=== PATIENT | female | born 1930 | race Caucasian/White ===

== ENCOUNTER 2016-11-17 13:57 | Inpatient (IN) | payer MEDICARE ==
[~2016-11-17] VITALS: Ht 157.5 cm; Wt 71.5 kg
[~2016-11-17 13:57] MED LIST: ATEN25TA PO; GLUC500C5 PO; MAXZTAB PO; MULTTAB67 PO; SERT-132 PO; SIMV20TA PO; VITA100064 PO; WARF-58 PO
[2016-11-20] MEDS ORDERED: WARF-18 PO (10:16)
[2016-11-20] MEDS ORDERED: HYDR-3583 PO (10:16)
[2016-11-20] MEDS ORDERED: [UNRECOGNIZED DRUG - CODE] PO (10:16)
[2016-11-20] MEDS ORDERED: MAGN1TAB14 PO (10:17)
[2016-11-20] MEDS ORDERED: ASCO500W PO (10:17)
[2016-11-20] MEDS ORDERED: CRANCAP2 PO (10:17)
[2016-12-06] MEDS ORDERED: LACTATED RINGER'S 1000 ML IV PRN (05:45)
[2016-12-06] MEDS ORDERED: METOPROLOL TARTRATE 25 MG TAB PO PRN (05:45)
[2016-12-06] MEDS ORDERED: POVIDONE IODINE 5% (ANTISEPSIS KIT) 4 APPLICATIONS EACH NARE PRN (05:45)
[2016-12-06] MEDS ORDERED: SODIUM CHLORID 0.9% 500 ML IV PRN (05:45)
[2016-12-06] MEDS ORDERED: CHLORHEXIDINE GLUCONATE 2 % 1 PACK (2 CLOTHS) TOPICAL PRN (05:45)
[2016-12-06] MEDS ORDERED: INSULIN HUMAN REGULAR 1,000 UNITS/10 ML VIAL SQ PRN (05:45)
[2016-12-06] MEDS ORDERED: ceFAZolin 2 GM PREMIX 50 ML IV SCH (06:00)
[2016-12-06] MEDS ORDERED: VANCOMYCIN 1000 MG/NS 250 ML (for <70 kg) IV SCH ×2 (06:00)
[2016-12-06] MEDS ORDERED: TRANEXAMIC ACID INJ 720 MG in SODIUM CHLORIDE 0.9% INJ 100 ML IV SCH (06:00)
[2016-12-06] MEDS ORDERED: EXPAREL PERI-ARTICULAR INJECTION (TOTAL VOL. 60 ML) P-ARTICULR SCH ×2 (06:00)
[2016-12-06] MEDS ORDERED: POVIDONE IODINE 7.5% SCRUB 118 ML BOTTLE TOPICAL SCH (06:00)
[2016-12-06] MEDS ORDERED: DEXAMETHASONE SOD PHOS 20 MG/5 ML VIAL IV PRN (06:00)
[2016-12-06] MEDS ORDERED: ENOX100P SQ (06:02)
[2016-12-06 06:05] VITALS: BP 159/77; PULSE 63; RESP 20; TEMP 99; O2SAT 98
[2016-12-06 06:21] LABS: PROTHROMBIN TIME - PATIENT 10.6 SEC (9.8-11.6)
[2016-12-06] MEDS ORDERED: GENTAMICIN SULFATE 80 MG/2 ML VIAL ONE (06:24)
[2016-12-06] MEDS ORDERED: MIDAZOLAM HCL 2 MG/2 ML VIAL ONE (06:39)
[2016-12-06] MEDS ORDERED: ACETAMINOPHEN 1000 MG/100 ML VIAL IV ONE (06:39)
[2016-12-06] MEDS ORDERED: FAMOTIDINE 20 MG/2 ML VIAL ONE (06:39)
[2016-12-06] MEDS ORDERED: fentaNYL CITRATE 250 MCG/5 ML AMP ONE (06:39)
--- NOTE | 2016-12-06 06:50 | HHI.DCPOC ---
Discharge Care Plan Diagnosis: (1) Status post total hip replacement, left (2) Osteoarthritis of left hip Your Health Problems Are: Difficulty with ADL Goals to Promote Your Health * To prevent worsening of your condition and complications * To maintain your health at the optimal level Directions to Meet Your Goals Take your medications as prescribed Follow your dietary instruction Follow activity as directed Keep your appointments as scheduled Take your immunizations and boosters as scheduled If your symptoms worsen call your PCP, if no PCP go to Urgent Care Center or Emergency Room Smoking is Dangerous to Your Health. Avoid second hand smoke Call the 24-hour hour crisis hotline for domestic abuse at Raudel Villasenor Dec 06, 2016 06:50
--- NOTE | 2016-12-06 06:51 | HHI.FF ---
Face to Face Verification Diagnosis: (1) Status post total hip replacement, left (2) Osteoarthritis of left hip Physical Therapy Gait training, Transfer training, bed to chair Hip: Total hip Left LE Weight Bearing: WB as tolerated Left LE Range of Motion: Active ROM Nursing Nursing: Ramírez teaching, Dressing changes Dressing Changes: Daily dressing change I have seen patient Leonela Hansen on 12/06/16. My clinical findings support the need for the requested home health care services because: Limited ability to care for self High risk of falls I certify that my clinical findings support that this patient is homebound because: Post-op weakness Unsteady gait/balance Raudel Villasenor Dec 06, 2016 06:51
[2016-12-06] MEDS ORDERED: COMMODE 3-IN-11 MIS (06:52)
[2016-12-06] MEDS ORDERED: WALKER WHEELS/F1 MIS (06:52)
[2016-12-06] MEDS ORDERED: diphenhydrAMINE HCL 50 MG/ML VIAL ONE (07:14)
[2016-12-06] MEDS ORDERED: ACETAMINOPHEN/HYDROcodone 325 MG/10 MG TAB PO PRN (08:45)
[2016-12-06] MEDS ORDERED: BISACODYL 10 MG SUPP RECTAL PRN (08:45)
[2016-12-06] MEDS ORDERED: MORPHINE SULFATE 4 MG/ML INJ IV PUSH PRN (08:45)
[2016-12-06] MEDS ORDERED: ONDANSETRON HCL 4 MG/2 ML VIAL IVP PRN (08:45)
[2016-12-06] MEDS ORDERED: Post-op Orders (for Pharmacy) MISC XX ONE (08:45)
[2016-12-06] MEDS ORDERED: SODIUM CHLORIDE 0.9% FLUSH 5 ML FLUSH IVF PRN (08:45)
[2016-12-06] MEDS ORDERED: ALUMINUM/MAGNESIUM/SIMETH 30 ML CUP PO PRN (08:45)
[2016-12-06] MEDS ORDERED: diphenhydrAMINE HCL 50 MG/ML VIAL IV PRN (08:45)
[2016-12-06] MEDS ORDERED: MAGNESIUM HYDROXIDE SUSP 30 ML CUP PO PRN (08:45)
[2016-12-06] MEDS ORDERED: NALOXONE HCL 0.4 MG/ML AMP IV PRN (08:45)
--- NOTE | 2016-12-06 08:47 | PD.OP ---
cc: Luis Fernando Orona MD Operative Report Date of Surgery: Dec 06, 2016 Preoperative Diagnosis: Left hip severe osteoarthritis Postoperative Diagnosis: Same Procedure: Left total hip arthroplasty Anesthesia: Gen. Surgeon: Luis Fernando Orona Planned Giving Officer(s): NESTOR Reeder The surgical procedure was assisted by my Advanced Registered Nurse Practitioner. My BOX PERSON presence was necessary throughout this case for the manipulation and positioning of the surgical extremity. My BOX PERSON was assisting me throughout the duration of this procedure. The skill set of an Advance Registered Nurse Practitioner was medically necessary to complete this procedure. During the surgical case, the manager surgical was working at the back table and the Advance Registered Nurse Practitioner was directly assisting me. Operation and Findings: IMPLANT DESCRIPTION: 1. [place] Gription Cup, acetabular size 50. 2. [place] AltrX polyethylene, neutral. 4. [place] femoral stem size 10, no collar, standard offset. 5. Femoral head/neck metal, 32, +1. ESTIMATED BLOOD LOSS: 250 cc. JUSTIFICATION FOR PROCEDURE: The patient has end-stage osteoarthritis to the hip. There is an attached conservative measures pathway form in the chart that describes the nonoperative measures that were undertaken prior to consideration of surgical management. The patient understood the risks and benefits of surgical management. See my office notes for further details. Note that this patient had her Coumadin held preoperatively and did have a Lovenox bridge prior to surgery per recommendation of cardiology. PROCEDURE: The patient was brought back to the operative theatre. Adequate anesthesia was obtained. The patient received intravenous vancomycin and Ancef. The patient was carefully placed on the operative table. The lower extremity was prepped and draped in the usual sterile fashion. Fluoroscopic images were obtained. We made a standard anterior incision over the hip. We dissected through the TFL fascia, exposing the anterior capsule. Arthrotomy was performed in a T-shaped fashion. The capsule was tagged with a #2 FiberWire. End-stage arthritis was identified. Osteotomy was performed through the femoral neck exposing the acetabulum. Remnants of the labrum were resected and osteophytes were removed. We sequentially reamed the acetabulum. We trialed the hip and placed the final cup into position. This was done under fluoroscopic guidance to obtain the appropriate inclination and anteversion. A manhole cover was placed into the acetabular component. We then placed the final polyethylene into position and confirmed that it was well seated. Capsular attachments on the calcar and the inner aspect of the greater trochanter were resected. On the proximal aspect of the femur we used a rongeur , box osteotome, canal finder, sequential broaches and lateralizing rasp. We calcar planed the proximal femur. Then thoroughly irrigated the wound. We trialed the hip with the appropriate size stem. We placed the final stem in to position and trialed again. The hip was stable while it was externally rotated 70 degrees when the leg was lowered to the floor. The final head was applied, and final fluoroscopic images were obtained. The wound was thoroughly irrigated again. Interarticular injection of liposomal bupivacaine was given. The capsule was closed with #2 FiberWire and #1 Vicryl. The deep fascia was closed with a #2 Stratafix, followed by 2-0 Vicryl in the skin and joyce. Postop plan is to weight-bear as tolerated. DVT prophylaxis will be performed with SCDs, CASTILLO valencia, early mobilization, and Lovenox for 3 days as a postoperative bridge. She will resume Coumadin tonight.. Luis Fernando Orona MD Dec 06, 2016 08:47
[2016-12-06] MEDS ORDERED: ENOX40P SQ (08:49)
[2016-12-06] MEDS ORDERED: HYDR-3366 PO (08:49)
[2016-12-06] MEDS: SODIUM CHLORIDE 0.9% FLUSH 5 ML FLUSH IVF SCH ×2 (09:00→21:21)
[2016-12-06] MEDS ORDERED: DO NOT ADM ANY ANTICOAGULANT DRUGS PRN (09:02)
[2016-12-06] MEDS: SODIUM CHLOR 0.9% 1000 ML INJ 1,000 ML IV SCH ×2 (09:17→18:43)
[2016-12-06] MEDS ORDERED: *morphine SULFATE 8 MG/ML PERIprocedure ONLY ONE ×2 (09:19→09:27)
[2016-12-06] MEDS ORDERED: *HYDROmorphone PF 1 MG VIAL PERIprocedural Use ONLY ONE ×2 (09:38→10:05)
[2016-12-06] MEDS: SERTRALINE HCL 50 MG TAB PO SCH (09:55)
[2016-12-06] MEDS ORDERED: SODIUM CHLORIDE 0.9% IV SCH (10:00)
[2016-12-06] MEDS ORDERED: TRANEXAMIC ACID IV SCH (10:00)
--- NOTE | 2016-12-06 10:00 | RADRPT ---
EXAM DATE/TIME: 12/06/2016 09:18 [facility] COMPARISON: No previous studies available for comparison. INDICATIONS : Post-op left hip arthroplasty. MEDICAL HISTORY : Hypertension. SURGICAL HISTORY : Total knee replacement, right. ENCOUNTER: Initial ACUITY: 1 day PAIN SCORE: 5/10 LOCATION: Left hip FINDINGS: Total hip arthroplasties are present bilaterally. Alignment is satisfactory. Hardware is intact on ekaterina th sides. There are skin joyce present laterally on the left. Skin joyce overlie the midline pelv is. There is no evidence of acute bony process. CONCLUSION: Satisfactory appearance post left FACUNDO Elias Mesa MD on December 06, 2016 at 9:57 Board Certified Radiologist. This report was verified electronically.
--- NOTE | 2016-12-06 10:11 | RADRPT ---
EXAM DATE/TIME: 12/06/2016 07:11 [facility] COMPARISON: No previous studies available for comparison. INDICATIONS : Left total hip arthroplasty. MEDICAL HISTORY : Unobtainable. SURGICAL HISTORY : Unobtainable. ENCOUNTER: Initial ACUITY: 1 day PAIN SCORE: Non-responsive. LOCATION: Left hip FINDINGS: A two view examination of the left hip was performed. Post surgical changes following joint replaceme nt are noted. Acetabular and femoral components are well-seated and satisfactorily aligned. There is no evidence of acute fracture. CONCLUSION: Satisfactory postoperative parents the left hip status post replacement. Giovanni Marshall MD on December 06, 2016 at 10:09 Board Certified Radiologist. This report was verified electronically.
[2016-12-06] MEDS ORDERED: ONDANSETRON HCL 4 MG/2 ML VIAL IV PUSH ONE (12:00)
[2016-12-06] MEDS ORDERED: NEOSTIGMINE 3 MG/3 ML SYR IV ONE (12:00)
[2016-12-06] MEDS ORDERED: LACTATED RINGER'S 1000 ML INJ 1,000 ML IV ONE (12:00)
[2016-12-06] MEDS ORDERED: PROPOFOL 200 MG/20 ML AMP IV ONE (12:00)
[2016-12-06] MEDS ORDERED: ePHEDrine/NS 25 MG/5 ML SYR IV ONE (12:00)
--- NOTE | 2016-12-06 12:36 | PD.CONS ---
HPI Service [facility] Hospitalists Consult Requested By Primary Care Physician Merle Bolton MD Diagnoses: History of Present Illness Pt is 86 yo admitted for elective Left hip arthroplasty for OA. 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 She reports stopping the coumadin and was on lovenox preop. In Pacu pt actually sitting on edge of bed and says she feels like going home today. no cp, no sob, no n/v Review of Systems Other no cp/sob/n/v left hip pain. Past Family Social History Past Medical History htn hyperlipidemia oa s/p right lynette factor 5 leiden with hx dvt in leg. Appendectomy Hysterectomy Right elbow surgery Varicose vein ligation Reported Medications Lovenox Inj (Enoxaparin Sodium) 100 Mg/Ml Syr 100 Mg SQ DAILY Vitamin C 500 mg Wafer (Ascorbic Acid/Ascorbate Sodium) 500 Mg Wafer 1 Wafer PO PRN Magnesium 400 Mg Tab 400 Mg PO DAILY Cranberry Urinary Comfort (Vitamins C & E) 1 Cap 1 Cap PO DAILY Warfarin 2.5 Mg Tab 2.5 Mg PO ,,,FR B-12 (Cyanocobalamin (Vitamin B-12)) 1,000 Mcg Tablet 1 Tab PO DAILY Hydrocodone-Acetaminophen 10-325 mg Tab 1 Tab PO Q6H PRN Maxzide-25 (Triamterene-Hydrochlorothiazide) 37.5-25 Mg Tab 1 Tab PO DAILY Atenolol 25 Mg Tab 25 Mg PO DAILY Multiple Vitamin 1 Tab 1 Tab PO DAILY Sertraline (Sertraline HCl) 50 Mg Tab 50 Mg PO DAILY Simvastatin 20 Mg Tab 20 Mg PO HS Vitamin D3 (Cholecalciferol) 1,000 Unit Tab 2,000 Units PO DAILY Warfarin 3 Mg Tab 3 Mg PO ,, Glucosamine (Glucosamine Sulfate) 500 Mg Cap 1 Tab PO DAILY Allergies: Coded Allergies: Adhesives (Verified Allergy, Intermediate, 12/06/16) skin irritation Family History nc Social History no etoh/tob Physical Exam Vital Signs on edge bed nad heart reg lung cta abd s/nt ext no edema Vital Signs Date Time Temp Pulse Resp B/P Pulse Ox O2 Delivery O2 Flow Rate FiO2 12/06/16 10:45 82 24 143/71 100 12/06/16 10:30 65 20 128/69 100 12/06/16 10:15 69 16 119/64 99 12/06/16 10:00 52 17 127/60 99 12/06/16 09:45 53 10 140/65 100 12/06/16 09:30 55 15 140/64 100 12/06/16 09:25 10 12/06/16 09:15 54 14 145/73 100 Nasal Cannula 2 12/06/16 09:05 97.5 58 12 159/73 100 Simple Mask 6 12/06/16 06:05 99.0 63 20 159/77 98 Laboratory Laboratory Tests Test 12/06/16 05:56 Prothrombin Time 10.6 Prothromb Time International 1.0 Ratio Blood Type O POSITIVE Antibody Screen NEGATIVE Assessment and Plan Problem List: (1) Status post total hip replacement, left Status: Acute Plan: s/p left lynette for OA 12/06 pain control IS PT agree with bridging back to coumadin with low dose lovenox plan for d/c home with hhc/pt. home meds resumed. (2) Factor V Leiden Status: Chronic (3) HTN (hypertension), benign Status: Chronic Calixto William MD Dec 06, 2016 12:35
[2016-12-06] MEDS: ACETAMINOPHEN/HYDROcodone 325 MG/10 MG TAB PO PRN ×4 (13:29→22:21)
[2016-12-06 15:47] VITALS: BP 123/67; PULSE 62; RESP 17; TEMP 96.8; O2SAT 96
[2016-12-06] MEDS ORDERED: WARFARIN SOD 3 MG TAB PO SCH (17:00)
[2016-12-06 19:08] VITALS: BP 107/59; PULSE 64; RESP 18; TEMP 96.5; O2SAT 98
[2016-12-06] MEDS ORDERED: ZOLPIDEM TARTRATE 5 MG TAB PO PRN (21:00)
[2016-12-06] MEDS ORDERED: PRAVASTATIN SOD 40 MG TAB PO SCH (21:00)
[2016-12-07 01:23] VITALS: BP 112/56; PULSE 74; RESP 18; TEMP 96.9; O2SAT 98
[2016-12-07] MEDS: ACETAMINOPHEN/HYDROcodone 325 MG/10 MG TAB PO PRN ×3 (01:50→15:30)
[2016-12-07 04:18] VITALS: BP 114/58; PULSE 60; RESP 17; TEMP 96.5; O2SAT 97
[2016-12-07] MEDS: SODIUM CHLOR 0.9% 1000 ML INJ 1,000 ML IV SCH ×2 (04:43→13:38)
[2016-12-07 07:22] LABS: HEMATOCRIT 34.5 % (35.0-46.0); MEAN CELL VOLUME 86.3 FL (80.0-100.0); MEAN CORPUSCULAR HEMOGLOBIN 29.8 PG (27.0-34.0); MEAN CORPUSCULAR HGB CONC 34.5 % (32.0-36.0); PLATELET COUNT 183 TH/MM3 (150-450); RED CELL DISTRIBUTION WIDTH 12.9 % (11.6-17.2); REVIEW FLAG FINAL; WHITE BLOOD COUNT 6.9 TH/MM3 (4.0-11.0)
[2016-12-07 07:32] VITALS: BP 117/56; PULSE 62; RESP 18; TEMP 97.3; O2SAT 98
[2016-12-07] MEDS ORDERED: DEXAMETHASONE SOD PHOS 20 MG/5 ML VIAL IV ONE (07:45)
[2016-12-07] MEDS ORDERED: ENOXAPARIN SODIUM 40 MG/0.4 ML SYRINGE SQ SCH (08:00)
[2016-12-07] MEDS: SERTRALINE HCL 50 MG TAB PO SCH (08:59)
[2016-12-07] MEDS ORDERED: ATENOLOL 25 MG TAB PO SCH (09:00)
[2016-12-07] MEDS: SODIUM CHLORIDE 0.9% FLUSH 5 ML FLUSH IVF SCH (09:00)
[2016-12-07] MEDS ORDERED: TRIAMTERENE/HCTZ 37.5 MG/25 MG TAB PO SCH (09:00)
[2016-12-07 10:02] VITALS: O2SAT 98
[2016-12-07 11:33] VITALS: BP 137/69; PULSE 64; RESP 18; TEMP 97.8; O2SAT 96
--- NOTE | 2016-12-07 12:17 | PD.ORT.PN ---
Subjective Post Op Day #: 1 Subjective Remarks Patient is OOB resting comfortably in chair. Patient c/o mild to moderate left thigh pain. Patient requesting to go home today with home health. Objective Vitals Vital Signs Date Time Temp Pulse Resp B/P Pulse Ox O2 Delivery O2 Flow Rate FiO2 12/07/16 11:33 97.8 64 18 137/69 96 12/07/16 10:02 98 21 12/07/16 07:32 97.3 62 18 117/56 98 12/07/16 04:18 96.5 60 17 114/58 97 12/07/16 01:23 96.9 74 18 112/56 98 12/06/16 22:10 18 12/06/16 19:08 96.5 64 18 107/59 98 12/06/16 15:47 96.8 62 17 123/67 96 12/06/16 14:43 97.9 59 16 117/67 98 Room Air 12/06/16 14:00 82 16 117/67 98 12/06/16 13:00 80 17 122/78 98 I/O 12/06/16 12/06/16 12/06/16 12/07/16 12/07/16 12/07/16 07:00 15:00 23:00 07:00 15:00 23:00 Intake Total 1920 ml 840 ml Output Total 200 ml Balance 1720 ml 840 ml Intake Oral 720 ml 840 ml Other 1200 ml Output Estimated Blood Loss 200 ml # Voids 1 6 # Bowel Movements 0 Result Diagram: 12/07/16 0706 Procedures Left FACUNDO Objective Remarks The patient's dressing is changed with scant serosanguineous drainage. Incision is well approximated with surgical clips intact. No redness or s/s of infection. EHL/TA/G intact. 2+ pedal pulse. No calf swelling or tenderness. + SILT. Assessment & Plan Ortho Post Op Day #: 1 Problem List: Assessment and Plan POD #1: Left FACUNDO 1. WBAT LLE 2. Lovenox for 3 days for a bridge to her normal dose of Coumadin for DVT prophylaxis 3. Ice the left hip PRN 4. Stable for discharge home with home health today. 5. F/U in the office with Dr. Orona or Cricket BAEZ as scheduled. Raudel Villasenor Dec 07, 2016 12:17
[2016-12-07 15:17] LABS: INTERNATIONAL NORMALIZED RATIO 1.1 RATIO; PROTHROMBIN TIME - PATIENT 11.9 SEC (9.8-11.6)
[2016-12-07] MEDS ORDERED: MULTIVITAMINS/MINERALS THERAPEUTIC TAB PO SCH (21:00)
[2016-12-07] MEDS ORDERED: DOCUSATE SODIUM 100 MG CAP PO SCH (21:00)
--- NOTE | 2016-12-08 08:21 | HHI.DS ---
Discharge Summary Admission Date Dec 06, 2016 at 05:28 Discharge Date: Dec 07, 2016 Admitting Diagnosis Osteoarthritis of the LEFT hip Status post LEFT total hip replacement Diagnosis: (1) Status post total hip replacement, left Diagnosis: Principal (2) Osteoarthritis of left hip Diagnosis: Principal Procedures Left FACUNDO Brief History This is a 86 year old female patient with severe osteoarthritis of the LEFT hip. CBC/BMP: 12/07/16 0706 Significant Findings Laboratory Tests Test 12/07/16 12/07/16 07:06 14:28 Hematocrit 34.5 % (35.0-46.0) Prothrombin Time 11.9 SEC (9.8-11.6) PE at Discharge The patient's dressing is changed with scant serosanguineous drainage. Incision is well approximated with surgical clips intact. No redness or s/s of infection. EHL/TA/G intact. 2+ pedal pulse. No calf swelling or tenderness. + SILT. Hospital Course The patient was admitted to the hospital for severe osteoarthritis of the LEFT hip to have a LEFT total hip arthroplasty. The patient's surgery went well without complication. The patient is weightbearing as tolerated. The patient is on a regular diet. The patient has resumed her Coumadin medication and is bridging this with Lovenox for 3 days per her discovery manager's request. The patient is being discharged from the hospital to home health and will follow-up with Dr. Orona or NESTOR Bennett as previously scheduled. Pt Condition on Discharge: Stable Discharge Disposition: Disch w/ Home Health Serv Discharge Instructions Diet Instructions: As Tolerated, No Restrictions Activities You Can Perform: Weight Bearing as Pan Activities to Avoid: Strenuous Activity Follow up Referrals: Orthopedics with Luis Fernando Orona MD New Medications: Commode 3-in-1 (Commode 3-in-1) 1 Mis Mis 1 EA .ROUTE DIRECTED #1 Ref 0 EA Enoxaparin Inj (Lovenox Inj) 40 Mg/0.4 Ml Syr 40 MG SQ DAILY Take Coumadin additionally to this Lovenox Blood Clot Prevention #2 Ref 0 SYRINGE Hydrocodone-Acetaminophen ([place]) 10-325 Mg Tab 1-2 TAB PO Q4H PRN PAIN #60 Ref 0 TAB Walker with Front Wheels (Walker with Front Wheels) 1 Mis Mis 1 EA .ROUTE DIRECTED #1 Ref 0 EA Continued Medications: Ascorbic Acid/Ascorbate Sodium (Vitamin C 500 mg Wafer) 500 Mg Wafer 1 WAFER PO PRN ns Atenolol (Atenolol) 25 Mg Tab 25 MG PO DAILY Blood Pressure Management #30 TAB Cholecalciferol (Vitamin D3) 1,000 Unit Tab 2000 UNITS PO DAILY Nutritional Supplement #1 Ref 0 BOTTLE Cyanocobalamin (Vitamin B-12) (B-12) 1,000 Mcg Tablet 1 TAB PO DAILY Nutritional Supplement Glucosamine (Glucosamine) 500 Mg Cap 1 TAB PO DAILY Herbal Supplements Ref 0 CAP Magnesium (Magnesium) 400 Mg Tab 400 MG PO DAILY Nutritional Supplement Ref 0 TAB Multiple Vitamin (Multiple Vitamin) 1 Tab 1 TAB PO DAILY Nutritional Supplement Ref 0 TAB Sertraline (Sertraline) 50 Mg Tab 50 MG PO DAILY #30 Ref 0 TAB Simvastatin (Simvastatin) 20 Mg Tab 20 MG PO HS Cholesterol Management #30 Ref 0 TAB Triamterene-Hydrochlorothiazide (Maxzide-25) 37.5-25 Mg Tab 1 TAB PO DAILY #30 Ref 0 TAB Vitamins C & E (Cranberry Urinary Comfort) 1 Cap 1 CAP PO DAILY Urinary Symptom Managemen Ref 0 CAP Warfarin (Warfarin) 3 Mg Tab 3 MG PO ,sa,terrazas Blood Clot Prevention #30 Ref 0 TAB Warfarin (Warfarin) 2.5 Mg Tab 2.5 MG PO ,,we,fr Blood Clot Prevention #30 Ref 0 TAB Discontinued Medications: Enoxaparin Inj (Lovenox Inj) 100 Mg/Ml Syr 100 MG SQ DAILY Blood Clot Prevention Ref 0 SYRINGE Hydrocodone-Acetaminophen (Hydrocodone-Acetaminophen) 10-325 mg Tab 1 TAB PO Q6H PRN PAIN Ref 0 TAB Raudel Villasenor Dec 08, 2016 08:21
== END 2016-12-07 15:33 | disposition home health service (06) | DRG 470 ==
LOC: HSDI 12-06 05:28 → N06B 12-06 15:23
PROVIDERS: ADMIT Orthopaedic Surgery; ATTEND Orthopaedic Surgery
PROC: 0SRB02A Replacement of Left Hip Joint with Metal on Polyethylene Synthetic Substitute, Uncemented, Open Approach (ICD-10-PCS; principal; 2016-12-06 06:40)
DX: M16.12 Unilateral primary osteoarthritis, left hip (principal); D68.51 Activated protein C resistance; Z96.641 Presence of right artificial hip joint; Z86.718 Personal history of other venous thrombosis and embolism; Z79.01 Long term (current) use of anticoagulants; I10 Essential (primary) hypertension; E78.5 Hyperlipidemia, unspecified; M54.9 Dorsalgia, unspecified
CPT/HCPCS: 73502; 76000; 85027; 85610; 86850; 86900; 86901; 94150; C1776; C9290; J0131; J0690; J1100; J1170; J1200; J1580; J1650; J2250; J2270; J2405; J2710; J3010; J3370; J7030; J7050; J7120

== ENCOUNTER → 2016-11-20 | Outpatient (CLI) | payer MEDICARE ==
[~2016-11-20] MED LIST changes: +ACET1CAP18 PO; +ASCO500W PO; +CRANCAP2 PO; +CYAN100017 PO; +ENOX100P SQ; +ENOX40P SQ; +HYDR-3288 PO; +HYDR-3366 PO; +HYDR-3583 PO; +MAGN1TAB14 PO; +WARF-18 PO; +WARF4TAB52 PO; +[UNRECOGNIZED DRUG - CODE] PO
--- NOTE | 2016-11-20 11:26 | RADRPT ---
EXAM DATE/TIME: 11/20/2016 10:55 [facility] COMPARISON: CHEST EXPIRATION ONLY, December 02, 2014, 6:09. INDICATIONS : Evaluate for pneumonia, pneumothorax and communicable diseases. Pre-op for left total hip surgery. MEDICAL HISTORY : Hypertension. SURGICAL HISTORY : Total knee replacement, right. ENCOUNTER: Initial ACUITY: 1 day PAIN SCORE: 0/10 LOCATION: Bilateral chest FINDINGS: PA and lateral views of the chest demonstrate the lungs to be symmetrically aerated without evidence of mass, infiltrate or effusion. The cardiomediastinal contours are unremarkable. Osseous structure s are intact. Old fractures of the right posterior lateral seventh, eighth, and ninth ribs are noted. Degenerative changes and scoliosis of the thoraco-lumbar spine are noted. CONCLUSION: No acute cardiopulmonary disease. Jh Moffett MD on November 20, 2016 at 11:23 Board Certified Radiologist. This report was verified electronically.
[2016-11-20 11:52] LABS: APTT (PATIENT) 41.5 SEC (24.3-30.1); INTERNATIONAL NORMALIZED RATIO 2.5 RATIO; PROTHROMBIN TIME - PATIENT 29.3 SEC (9.8-11.6)
[2016-11-20 11:57] LABS: AUTOMATED NEUTROPHIL # 3.2 TH/MM3 (1.8-7.7); BASOPHIL % 0.4 % (0.0-2.0); EOSINOPHIL # 0.1 TH/MM3 (0-0.4); EOSINOPHIL % 2.2 % (0.0-4.0); HEMATOCRIT 40.5 % (35.0-46.0); HEMO FLAGS DIFF FINAL; LYMPH % 27.1 % (9.0-44.0); LYMPHOCYTE # 1.4 TH/MM3 (1.0-4.8); MEAN CELL VOLUME 87.3 FL (80.0-100.0); MEAN CORPUSCULAR HEMOGLOBIN 29.5 PG (27.0-34.0); MEAN CORPUSCULAR HGB CONC 33.8 % (32.0-36.0); MONO % 6.5 % (0.0-8.0); NEUT % 63.8 % (16.0-70.0); PLATELET COUNT 196 TH/MM3 (150-450); RED BLOOD COUNT 4.64 MIL/MM3 (4.00-5.30)
[2016-11-20 12:10] LABS: ANION GAP 6 MEQ/L (5-15); AST (GOT) 17 U/L (15-37); BICARBONATE 29.6 MEQ/L (21.0-32.0); BLOOD UREA NITROGEN 18 MG/DL (7-18); CHLORIDE 103 MEQ/L (98-107); GLOMERULAR FILTRATION RATE 85 ML/MIN (>89); GLUCOSE,FASTING 86 MG/DL (74-99); POTASSIUM 3.7 MEQ/L (3.5-5.1); SODIUM (NA) 139 MEQ/L (136-145)
[2016-11-20 12:11] LABS: ALT (GPT) 22 U/L (10-53)
[2016-11-20 12:13] LABS: ALKALINE PHOSPHATASE 65 U/L (45-117); TOTAL BILIRUBIN ADULT 0.4 MG/DL (0.2-1.0)
[2016-11-20 12:14] LABS: BLOOD, URINE NEG (NEG); COMMENT (UR) CULT NOT INDICATED; CULTURE IF INDICATED CULT NOT INDICATED; GLUCOSE,URINE NEG (NEG); KETONE, URINE NEG (NEG); NITRITE,URINE NEG (NEG); SQUAMOUS EPITHELIAL CELL URINE <1 /hpf (0-5); URINE COLOR YELLOW (YELLW/STRAW)
--- NOTE | 2016-11-20 12:15 | EKG ---
Date Performed: 11/20/2016 Time Performed: 10:07:18 PTAGE: 86 years EKG: SINUS BRADYCARDIA LOW QRS VOLTAGE IN PRECORDIAL LEADS VOLTAGE CRITERIA FOR LVH POSSIBLE SEP BRISA MYOCARDIAL INFARCTION, OF INDETERMINATE AGE INFERIOR MYOCARDIAL INFARCTION, PROBABLY OLD ABNORMAL ECG NO PREVIOUS TRACING DOCTOR: Jame Villanueva Interpretating Date/Time 11/20/2016 12:13:55
[2016-11-20 12:51] LABS: WESTERGREN SEDIMENTATION RATE 18 mm/hr (0-30)
== END ==
LOC: CPRE 09:41
PROVIDERS: ATTEND Orthopaedic Surgery
DX: Z01.812 Encounter for preprocedural laboratory examination (principal); Z01.811 Encounter for preprocedural respiratory examination; Z01.810 Encounter for preprocedural cardiovascular examination; M16.12 Unilateral primary osteoarthritis, left hip; M79.609 Pain in unspecified limb; R94.31 Abnormal electrocardiogram [ECG] [EKG]; Z96.60 Presence of unspecified orthopedic joint implant
CPT/HCPCS: 36415; 71020; 80053; 81001; 85025; 85610; 85652; 85730; 93005